=== PATIENT | male | born 1960 ===

== ENCOUNTER 2018-11-20 08:39 | Day surgery (SDC) | payer BC ==
[2018-11-03 09:10] VITALS: BMI 28.5
[2018-11-20] MEDS ORDERED: Midazolam 2 MG/2 ML VIAL ONE (11:57)
[2018-11-20] MEDS ORDERED: Propofol 10 mg/ml Inj (20 ML) ONE (11:57)
[2018-11-20] MEDS ORDERED: Lidocaine Hydrochloride 5 ML INJ ONE (12:02)
[2018-11-20] MEDS ORDERED: Ciprofloxacin 400mg/200ml D5W 400 MG/200 ML BAG IVPB ONE (12:04)
--- NOTE | 2018-11-20 12:24 | PCM.SURG1 ---
Surgeon's Initial Post Op Note - Surgeon's Notes Surgeon: yuliet Sample Dye Mixer: none Type of Anesthesia: IV Sedation Anesthesia Administered By: Terry Pre-Operative Diagnosis: bph prostatitis. Operative Findings: bph prostatocystatis. Post-Operative Diagnosis: bph prostatocystitis Operation Performed: cystoscopy Specimen/Specimens Removed: none Estimated Blood Loss: EBL {In ML}: 0 Blood Products Given: N/A Drains Used: No Drains Post-Op Condition: Good Date of Surgery/Procedure: 11/20/18 Time of Surgery/Procedure: 12:
[2018-11-20] MEDS ORDERED: HYDROmorphone 0.5 mg/0.5 ml ISec IVP PRN (12:53)
[2018-11-20 15:40] VITALS: BP 120/69; PULSE 72; RESP 18; TEMP 97; O2SAT 100
--- NOTE | 2018-11-21 02:12 | OP ---
PROCEDURE DATE: 11/20/2018 PREOPERATIVE DIAGNOSES: Benign prostatic hypertrophy, prostatitis. POSTOPERATIVE DIAGNOSES: Benign prostatic hypertrophy, prostatocystitis. OPERATION: Cystoscopy. SURGEON: Bolivar Gomez MD GROSS FINDING: Good bladder capacity. No tumors or stones were observed during emptying and filling of the bladder. Mild trabeculated bladder. Ureteral orifices normally placed and in configuration. Bladder urothelium easily bleeding during bladder distention, suggesting chronic inflammation of the bladder. The bladder neck was narrowing because of enlargement of the prostate gland. Inflammation of the prostate gland noted with calcification, showed prostatic urethra, membranous and pendulous urethra normal. TECHNIQUE: The patient was placed in lithotomy position. The external genitalia were prepped and draped in the usual sterile fashion. A #17 panendoscope was introduced into the bladder under direct vision. Findings as above. The procedure was terminated. The patient withstood the procedure well and returned to recovery room in satisfactory condition. Bolivar Gomez MD
== END 2018-11-20 15:42 | disposition home or self-care (01) ==
LOC: C.SDS 08:39
PROVIDERS: ATTEND Urology
DX: N41.3 Prostatocystitis (principal)
CPT/HCPCS: 52000; 82948; J0744